=== PATIENT | male | born 1975 | race Caucasian/White ===

== ENCOUNTER 2024-09-25 15:52 | Emergency (ER) | payer BC, SELFPAY ==
--- OUTSIDE RECORDS SUMMARY | 2024-09-23 10:20 | XMS_ITS | Encounter Summary ---
Author Organization [facility] Healthcare Address [address] [place] [address] Care Team Providers Care Documentation Engineer Name Role Phone Kae Casanova NP Unavailable Yolanda Medina MD Primary Care Provider [phone] Reason for Visit * Reason Comments UTI Encounter Details Date Type Department Care Team (Late st Contact Info) Description 09/23/2024 10:20 AM EDT Office Visit [facility] Family Medicine [address] [place] [address] Yolanda Mednia MD [address] [place] [address] Arthralgia, unspecified joint (Primary Dx); Dysuria; Nonintractable headache, unspecified chronicity pattern, unspecified headache type Social History Tobacco Use Types Packs/Day Years Used Date Smoking Tobacco: Never Smokeless Tobacco: Never Alcohol Use Standard Drinks/Week Comments Yes 0 (1 standard drink = 0.6 oz pure alcohol) caffeine: 1-2 cups every other day AUDIT-C Answer Date Recorded Q1: How often do you have a drink containing alc ohol? Monthly or less 10/01/2022 Q2: How many drinks containi ng alcohol do you have on a typical day when you are drinking? 1 or 2 10/01/2022 Q3: How often do you have si x or more drinks on one occasion? Never 10/01/2022 PHQ-2 Answer Date Recorded Patient Health Questionnaire-2 Score 0 10/01/2022 Sex and Gender Information Value Date Recorded Sex Assigned at Not on file Legal Sex Male 7:25 PM EDT Gender Identity Not on file Sexual Orientation Not on file documented as of this encounter Last Filed Vital Signs Vital Sign Reading Time Taken Comments Blood Pressure 124/70 09/23/2024 10:31 AM EDT Pulse 97 09/23/2024 10:31 AM EDT Temperature - - Respiratory Rate 18 09/23/2024 10:31 AM EDT Oxygen Saturation 95% 09/23/2024 10:31 AM EDT Inhaled Oxygen Concentration - - Weight 157 kg (346 lb 6.4 oz) 09/23/2024 10:31 A M EDT Height 160 cm (5' 3 ) 09/23/2024 10:31 AM EDT Body Mass Index 61.36 09/23/2024 10:31 AM EDT documented in this encounter Progress Notes * Yolanda Medina MD - 09/23/2024 10:20 AM EDT Images from the original note were not included. Subjective Patient ID: Nolan Prince is a 49 y.o. male who presents for UTI. HPI History of Present Illness The patient presents for evaluation of diarrhea. She began experiencing frequent bowel movements after work on 09/22/2024, with a total of three bowel movements this morning and one during the night. The stools were slightly loose but not severe. She has not had any recent issues with constipation. Her typical pattern is three bowel movements in the morning, which are not always loose. On some days, she may only have one or two bowel movements.Her diet includes Gatorade, consuming one to two bottles daily, and water. She also consumes fiber-rich cereals. She underwent a colonoscopy years ago due to bleeding. She reports feeling slightly congested and has a mild ache. She has had tick bites in the past and had one on 09/22/2024. Diet: Includes Gatorade (1-2 bottles daily), water, and fiber-rich cereals. PAST SURGICAL HISTORY: Colonoscopy years ago due to bleeding. Objective There were no vitals taken for this visit. Visit Vitals BP 124/70 (BP Location: Left arm, Patient Position: Sitting, BP Cuff Size: Large adult) Pulse 97 Resp 18 Ht 5' 3 Wt 346 lb 6.4 oz SpO2 95% BMI 61.36 kg/m?? Smoking Status Never BSA 2.64 m?? Physical Exam Constitutional: Appearance: He is normal weight. HENT: Head: Normocephalic and atraumatic. Nose: Nose normal. No congestion. Mouth/Throat: Mouth: Mucous membranes are moist. Eyes: Extraocular Movements: Extraocular movements intact. Pupils: Pupils are equal, round, and reactive to light. Cardiovascular: Rate and Rhythm: Normal rate and regular rhythm. Pulmonary: Effort: Pulmonary effort is normal. No respiratory distress. Breath sounds: Normal breath sounds. No wheezing. Musculoskeletal: General: No swelling or deformity. Cervical back: Normal range of motion and neck supple. Right lower leg: No edema. Left lower leg: No edema. Skin: General: Skin is warm and dry. Findings: No rash. Neurological: General: No focal deficit present. Mental Status: He is alert and oriented to person, place, and time. Cranial Nerves: No cranial nerve deficit. Gait: Gait normal. Psychiatric: Mood and Affect: Mood normal. Behavior: Behavior normal. Physical Exam Nose: No runny nose Cardiovascular: Blood pressure is normal Assessment & Plan Dysuria Orders: POCT Urinalysis dipstick CBC and differential; Future Arthralgia, unspecified joint Orders: CBC and differential; Future Comprehensive metabolic panel; Future Lyme disease, PCR; Future Nonintractable headache, unspecified chronicity pattern, unspecified headache type Orders: CBC and differential; Future Comprehensive metabolic panel; Future Lyme disease, PCR; Future Assessment & Plan 1. Diarrhea. - Symptoms of frequent bowel movements and loose stools started after work yesterday. - Reports having 3 bowel movements this morning and 1 in the middle of the night. - Blood work will be drawn, and a urine culture will be sent for further analysis to rule out any infection. - Advised to rest, hydrate adequately, and avoid overexertion. Increase fiber intake to help regulate bowel movements. Inform us immediately if the condition worsens. 2. Fever. - Reports feeling a little achy and has a slight fever. - No runny nose or significant symptoms to explain the fever. - Advised to rest and stay hydrated. - If symptoms persist or worsen, further evaluation will be necessary. documented in this encounter Plan of Treatment Scheduled Orders Name Type Priority Associated Diagnoses Orde r Schedule Lyme disease, PCR Lab Routine Arthralgia, unspecified joint Nonintractable headache, unspecified chronicity pattern, unspecified headache type Expected: 09/23/2024 (Approximate), Expires: 09/23/2025 Urine culture (clean catch) Microbiology Routine Dysuria Arthralgia, unspecified joint Nonintractable headache, unspecified chronicity pattern, unspecified headache type Expected: 09/23/2024 (Approximate), Expires: 09/23/2025 documented as of this encounter Procedures Procedure Name Priority Date/Time Associated Diagnosis Comments LYME DISEASE, WESTERN BLOT Routine 09/23/2024 10:55 AM EDT CBC (INCLUDES DIFF/PLT) Routine 09/23/2024 10:55 AM EDT Dysuria Arthralgia, unspecified joint Nonintractable headache, unspecified chronicity pattern, unspecified headache type COMPREHENSIVE METABOLIC PANEL Routine 09/23/2024 10:55 AM EDT Arthralgia, unspecified joint Nonintractable headache, unspecified chronicity pattern, unspecified headache type POCT URINALYSIS DIPSTICK Routine 09/23/2024 10:42 AM EDT Dysuria documented in this encounter Results * Lyme disease, western blot (09/23/2024 10:55 AM EDT) [facility] LYME AB SCREEN <0.90 index [facility] Comment: Index Interpretation ----- < 0.90 Negative 0.90-1.09 Equivocal > 1.09 Positive As recommended by the Food and Drug Administration (FDA), all samples with positive or equivocal results in a Borrelia burgdorferi antibody screen will be tested using a blot method. Positive or equivocal screening test results should not be interpreted as truly positive until verified as such using a supplemental assay (e.g., B. burgdorferi blot). The screening test and/or blot for B. burgdorferi antibodies may be falsely negative in early stages of Lyme disease, including the period when erythema migrans is apparent. 09/23/2024 10:5 5 AM EDT 09/23/2024 10:55 AM EDT Narrative Resulting Agency Comment Performing Organization Information Site ID: QPT Name: [facility] Address: [address], [address] [place] [address] Director: Mickey Martinez MD Yolanda Medina MD LAB BLOOD ORDERABLES Final Resul t Performing Organization Address [facility] Co de Phone Number [facility] * Comprehensive metabolic panel (09/23/2024 10:55 AM EDT) [facility] Glucose 87 65 - 99 mg/dL [facility] Comment: Fasting reference interval BUN 14 7 - 25 mg/dL [facility] Creatinine 0.99 0.60 - 1.29 mg/dL [facility] EGFR 95 > OR = 60 mL/min/1. 73m2 [facility] BUN/CREATININE RATIO SEE NOTE: 6 - 22 (calc) [facility] Comment: Not Reported: BUN and Creatinine are within reference range. Sodium 137 135 - 146 mmol/L [facility] Potassium, Bld 3.8 3.5 - 5.3 mmol/L [facility] Chloride 100 98 - 110 mmol/L [facility] Carbon Dioxide 28 20 - 32 mmol/L [facility] Calcium 9.6 8.6 - 10.3 mg/dL [facility] PROTEIN, TOTAL 7.0 6.1 - 8.1 g/dL [facility] ALBUMIN 4.1 3.6 - 5.1 g/dL [facility] GLOBULIN 2.9 1.9 - 3.7 g/dL (calc) [facility] ALBUMIN/GLOBULIN RATIO 1.4 1.0 - 2.5 (calc) [facility] BILIRUBIN, TOTAL 1.0 0.2 - 1.2 mg/dL [facility] ALKALINE PHOSPHATASE 74 36 - 130 U/L [facility] AST 12 10 - 40 U/L [facility] ALT 14 9 - 46 U/L [facility] Blood Venous blood specimen / Unknown 09/23/2024 10:55 AM EDT 09/23/2024 10:55 AM EDT Narrative Resulting Agency Comment Performing Organization Information Site ID: QPT Name: [facility] Address: [address] [place] [address] Director: Mickey aMrtinez MD Yolanda Medina MD LAB BLOOD ORDERABLES Final Resul t Performing Organization Address City/[facility]/ZIP Co de Phone Number [facility] * (ABNORMAL) CBC and differential (09/23/2024 10:55 AM EDT) WHITE BLOOD CELL COUNT 19.0(H) 3.8 - 10.8 Thousand/ uL [facility] RED BLOOD CELL COUNT 5.00 4.20 - 5.80 Million/u L [facility] HEMOGLOBIN 15.0 13.2 - 17.1 g/dL [facility] HEMATOCRIT 46.9 38.5 - 50.0 % [facility] MCV 93.8 80.0 - 100.0 fL [facility] MCH 30.0 27.0 - 33.0 pg [facility] MCHC 32.0 32.0 - 36.0 g/dL [facility] Comment: For adults, a slight decrease in the calculated MCHC value (in the range of 30 to 32 g/dL) is most likely not clinically significant; however, it should be interpreted with caution in correlation with other red cell parameters and the patient's clinical condition. RDW 13.6 11.0 - 15.0 % [facility] PLATELET COUNT 200 140 - 400 Thousand/ uL [facility] MPV 11.2 7.5 - 12.5 fL [facility] ABSOLUTE NEUTROPHILS 16,853(H) 1,500 - 7,800 cells/uL [facility] ABSOLUTE LYMPHOCYTES 969 850 - 3,900 cells/uL [facility] ABSOLUTE MONOCYTES 1,083(H) 200 - 950 cells/uL [facility] ABSOLUTE EOSINOPHILS 38 15 - 500 cells/uL [facility] ABSOLUTE BASOPHILS 57 0 - 200 cells/uL [facility] NEUTROPHILS 88.7 % [facility] LYMPHOCYTES 5.1 % [facility] MONOCYTES 5.7 % [facility] EOSINOPHILS 0.2 % [facility] BASOPHILS 0.3 % [facility] Blood Venous blood specimen / Unknown 09/23/2024 10:55 AM EDT 09/23/2024 10:55 AM EDT Narrative Resulting Agency Comment Performing Organization Information Site ID: QPT Name: [facility] Address: [address] [place] [phone] Director: Mickey Martinez MD us Yolanda Medina MD LAB BLOOD ORDERABLES Final Resul t [facility] * POCT Urinalysis dipstick (09/23/2024 10:42 AM EDT) Color, UA Light Yellow Clarity, UA Clear Glucose, UA Negative Negative - 1999(110) ++++ mg/dL Bilirubin, UA Negative Negative - 4(70) +++ mg/dL Ketones, UA Negative Negative - 160(16) ++++ mg/dL Spec Grav, UA 1.005 1 - 1.03 Blood, UA Negative Negative - 50 Juan Manuel/mcL pH, UA 6.5 5 - 9 Protein, UA Negative Negative - 1999(20) ++++ mg/dL Urobilinogen, UA 0.2 0.2 - 12 mg/dL Leukocytes, UA Negative Negative - 500+++ Domingo/mcL Nitrite, UA Negative Negative - Positive Urine 09/23/2024 10:4 2 AM EDT Yolanda Medina MD POINT OF CARE TEST ENTER/EDIT OR DERABLES Final Result documented in this encounter Visit Diagnoses Diagnosis Arthralgia, unspecified joint- Primary Dysuria Nonintractable headache, unspecified chronicity pattern, unspecified headache type documented in this encounter Care Teams Documentation Engineer Relationship Specialty Start Date End Date Kae Casanova NP PCP - [employer] 05/25/20 Yolanda Medina MD [address] [place] [address] PCP - General Family Medicine 07/02/22 documented as of this encounter
--- OUTSIDE RECORDS SUMMARY | 2024-09-25 08:00 | XMS_ITS | Encounter Summary ---
Author Organization [facility] Healthcare Address [address] [place] [address] Care Team Providers Care Reed Maker Name Role Phone Kae Casanova NP Unavailable Yolanda Medina MD Primary Care Provider [phone] Encounter Details Date Type Department Care Team (Late st Contact Info) Description 09/25/2024 8:00 AM EDT Office Visit [facility] Family Medicine [address] [place] [address] Melinda Fuller NP [address], [place] [id number] Arthralgia, unspecified joint (Primary Dx); Dysuria; Nonintractable headache, unspecified chronicity pattern, unspecified headache type; Leukocytosis, unspecified type; Fever, unspecified fever cause Social History Tobacco Use Types Packs/Day Years [...] Sign Reading Time Taken Comments Blood Pressure 138/78 09/25/2024 8:22 AM EDT Pulse 99 09/25/2024 8:22 AM EDT Temperature 37.3 C (99.1 F) 09/25/2024 8:22 AM EDT Respiratory Rate - - Oxygen Saturation 96% 09/25/2024 8:22 AM EDT Inhaled Oxygen Concentration - - Weight - - Height - - Body Mass Index - - documented in this encounter Progress Notes * Melinda Fuller, MELODIE - 09/25/2024 8:00 AM EDT Images from the original note were not included. Nolan Prince is a 49 y.o. male presents with chief complaint of urine follow up. HPI: HPI History of Present Illness The patient presents for evaluation of dysuria, arthralgias, fevers, and headaches. He reports some improvement in his condition, although he continues to experience intermittent fevers, chills, dysuria, arthralgias, and headaches. He is uncertain about the presence of fever yesterday as it was not checked. He also mentions occasional joint pain, which has lessened in severity since his visit on with Dr. Medina. He experiences sporadic burning sensations during urinationand persistent headaches. He does not report any shortness of breath or chest pain. He reports no risk of sexually transmitted diseases. He notes that his urine was clear this morning but has since darkened. He maintains adequate hydration. SUBJECTIVE: MEDICATIONS: Current Outpatient Medications Medication Instructions albuterol HFA 90 mcg/act inhaler 2 puffs, Inhalation, Every 6 hours hydroCHLOROthiazide (HYDRODIURIL) 25 mg, Oral, Daily lisinopril 10 mg, Oral, Daily meloxicam (Mobic) 15 MG tablet Every 24 hours Misc Natural Products (Elderberry Zinc/Vit C/Immune) lozenge as directed Mouth/Throat Misc. Devices misc 1 wear nightly Multiple Vitamins-Minerals (One Daily Complete for Men) tablet as directed Orally omeprazole (PriLOSEC) [address] capsule TAKE ONE CAPSULE BY MOUTH DAILY 30 MINUTES BEFORE MORNING MEAL for 90 days I have reviewed and reconciled the history and medication list with the patient today. REVIEW OF SYMPTOMS: Review of Systems Constitutional: Positive for chills, fatigue and fever. HENT: Negative. Respiratory: Positive for cough. Cardiovascular: Negative. Gastrointestinal: Positive for abdominal pain. Genitourinary: Positive for dysuria. Musculoskeletal: Positive for arthralgias. Skin: Negative. Neurological: Negative. Psychiatric/Behavioral: Negative. OBJECTIVE: Visit Vitals BP 138/78 (BP Location: Right arm, Patient Position: Sitting) Pulse 99 Temp 99.1 ??F SpO2 96% Smoking Status Never Physical Exam Vitals and nursing note reviewed. Constitutional: Appearance: Normal appearance. He is ill-appearing. HENT: Head: Normocephalic and atraumatic. Right Ear: Tympanic membrane normal. Left Ear: Tympanic membrane normal. Nose: Nose normal. Mouth/Throat: Mouth: Mucous membranes are moist. Cardiovascular: Rate and Rhythm: Normal rate and regular rhythm. Pulses: Normal pulses. Heart sounds: Normal heart sounds. Pulmonary: Effort: Pulmonary effort is normal. No respiratory distress. Breath sounds: Normal breath sounds. No stridor. No wheezing, rhonchi or rales. Abdominal: General: Bowel sounds are normal. There is no distension. Palpations: Abdomen is soft. There is no mass. Tenderness: There is no abdominal tenderness. There is no right CVA tenderness or left CVA tenderness. Hernia: No hernia is present. Skin: General: Skin is warm and dry. Neurological: General: No focal deficit present. Mental Status: He is alert and oriented to person, place, and time. Psychiatric: Mood and Affect: Mood normal. Behavior: Behavior normal. ASSESSMENT AND PLAN: Assessment/Plan Problem List Items Addressed This Visit None Visit Diagnoses Arthralgia, unspecified joint - Primary Relevant Orders CBC and differential DEEDEE Sedimentation rate, automated C-reactive protein Rheumatoid factor XR chest 2 views Dwight-Chilel virus VCA antibody panel Blood culture Blood culture Dysuria Relevant Medications cephalexin (Keflex) 500 MG capsule Take 1 capsule (500 mg) by mouth in the morning and 1 capsule (500 mg) at noon and 1 capsule (500 mg) in the evening and 1 capsule (500 mg) before bedtime. Do all this for 7 days Other Relevant Orders Urine culture (clean catch) Urinalysis with reflex microscopic POCT Urinalysis dipstick (Completed) C. trachomatis / N. gonorrhoeae, DNA probe Nonintractable headache, unspecified chronicity pattern, unspecified headache type Leukocytosis, unspecified type Relevant Orders CBC and differential DEEDEE Sedimentation rate, automated C-reactive protein Rheumatoid factor XR chest 2 views Dwight-Chilel virus VCA antibody panel Blood culture Blood culture Fever, unspecified fever cause Relevant Orders CBC and differential DEEDEE Sedimentation rate, automated C-reactive protein Rheumatoid factor XR chest 2 views Dwight-Chilel virus VCA antibody panel Blood culture Blood culture Assessment & Plan 1. Urinary Tract Infection. - White blood cell count is elevated, indicating a possible infection. Presence of blood and leukocytes in urine suggests a urinary tract infection. - Urine sample from 09/23/2024 did not show any abnormalities. Discoloration of urine could be due to dehydration or onset of a urinary tract infection with blood in the urine. Expected urine color normalization post-treatment. - Comprehensive workup to rule out other potential causes. Repeat CBC to monitor white blood cell count. Blood cultures to rule out any bacteria growth in the blood. C-reactive protein and sed rate to assess for inflammation. Tests for DEEDEE and rheumatoid factor to rule out autoimmune conditions. Chest x-ray to exclude any pulmonary issues. Urine culture to be sent for analysis. Chlamydia and gonor chrissie urine test as well. - Keflex 500 mg, 1 capsule 4 times a day for 7 days prescribed. Advised to maintain adequate hydration. Await results of the second urine culture if the first is negative. Further investigation may be necessary if the second culture is also negative. documented in this encounter Plan of Treatment Scheduled Orders Name Type Priority Associated Diagnoses Order Schedule CBC and differential Lab Routine Arthralgia, unspecified joint Leukocytosis, unspecified type Fever, unspecified fever cause Expected: 09/25/2024 (Approximate), Expires: 09/25/2025 DEEDEE Lab Routine Arthralgia, unspecified joint Leukocytosis, unspecified type Fever, unspecified fever cause Expected: 09/25/2024 (Approximate), Expires: 09/25/2025 Sedimentation rate, automated Lab Routine Arthralgia, unspecified joint Leukocytosis, unspecified type Fever, unspecified fever cause Expected: 09/25/2024 (Approximate), Expires: 09/25/2025 C-reactive protein Lab Routine Arthralgia, unspecified joint Leukocytosis, unspecified type Fever, unspecified fever cause Expected: 09/25/2024 (Approximate), Expires: 09/25/2025 Rheumatoid factor Lab Routine Arthralgia, unspecified joint Leukocytosis, unspecified type Fever, unspecified fever cause Expected: 09/25/2024 (Approximate), Expires: 09/25/2025 XR chest 2 views Imaging Routine Arthralgia, unspecified joint Leukocytosis, unspecified type Fever, unspecified fever cause Expected: 09/25/2024, Expires: 09/25/2025 Dwight-Chilel virus VCA antibody panel Lab Routine Arthralgia, unspecified joint Leukocytosis, unspecified type Fever, unspecified fever cause Expected: 09/25/2024 (Approximate), Expires: 09/25/2025 Blood culture Microbiology Routine Arthralgia, unspecified joint Leukocytosis, unspecified type Fever, unspecified fever cause Expected: 09/25/2024 (Approximate), Expires: 09/25/2025 Blood culture Microbiology Routine Arthralgia, unspecified joint Leukocytosis, unspecified type Fever, unspecified fever cause Expected: 09/25/2024 (Approximate), Expires: 09/25/2025 Urine culture (clean catch) Microbiology Routine Dysuria Expected: 09/25/2024 (Approximate), Expires: 09/25/2025 Urinalysis with reflex microscopic Lab Routine Dysuria Expected: 09/25/2024 (Approximate), Expires: 09/25/2025 C. trachomatis / N. gonorrhoeae, DNA probe Pathology and Cytology Routine Dysuria Expected: 09/25/2024 (Approximate), Expires: 09/25/2025 documented as of this encounter Procedures Procedure Name Priority Date/Time Associated Diagnosis Comments POCT URINALYSIS DIPSTICK Routine 09/25/2024 8:55 AM EDT Dysuria documented in this encounter Results * POCT Urinalysis dipstick (09/25/2024 8:55 AM EDT) Color, UA [employer] Clarity, UA Hazy Glucose, UA Negative Negative - 2000(110) ++++ mg/dL Bilirubin, UA Negative Negative - 4(70) +++ mg/dL Ketones, UA Negative Negative - 160(16) ++++ mg/dL Spec Grav, UA 1.015 1 - 1.03 Blood, UA Positive Negative - 50 Juan Manuel/mcL pH, UA 5.0 5 - 9 Protein, UA Positive Negative - 2000(20) ++++ mg/dL Urobilinogen, UA 0.2 0.2 - 12 mg/dL Leukocytes, UA Positive Negative - 500+++ Domingo/mcL Nitrite, UA Negative Negative - Positive Urine 09/25/2024 8:55 AM EDT Melinda Fuller COUNSELING CASE MANAGER POINT OF CARE TEST ENTER/EDIT O RDERABLES Final Result documented in this encounter Visit Diagnoses Diagnosis Arthralgia, unspecified joint- Primary Dysuria Nonintractable headache, unspecified chronicity pattern, unspecified headache type Leukocytosis, unspecified type Fever, unspecified fever cause documented in this encounter Care Teams Reed Maker Relationship Specialty Start Date End Date Kae Casanova NP PCP - Sandra [employer] 05/25/20 Yolanda Medina MD [address] [place] [address] PCP - General Family Medicine 07/02/22 documented as of this encounter
--- OUTSIDE RECORDS SUMMARY | 2024-09-25 09:30 | XMS_ITS | Encounter Summary ---
Author Organization [facility] [facility] tem Address [id number] [address] [place] [address] Care Team Providers Care Cook Helper Preserves Name Role Phone Yolanda Medina MD Primary Care Provider [phone] Encounter Details Date Type Department Care Team (Latest Contact Info) Description 09/25/2024 9:30 AM EDT Hospital Encounter [facility] - Radiology [address] [place] [id number] Arthralgia, unspecified joint Social History Tobacco Use Types Packs/Day Years Used Date Smoking Tobacco: Never Smokeless Tobacco: Never Alcohol Use Standard Drinks/Week Comments Yes 0 (1 standard drink = 0.6 oz pur e alcohol) AUDIT-C Answer Date Recorded Frequency of Alcohol Consumption Monthly or less 12/24/2017 Average Number of Drinks Not on file 018 Frequency of Binge Drinking Not on file 11/26 Childcare Answer Date Recorded Childcare Unknown 08/05/2018 Employment Answer Date Recorded Employment Unknown 08/05/2018 Purpose - Life Answer Date Recorded Purpose and direction in life Unknown Sex and Gender Information Value Date Recorded Sex Assigned at Not on file Legal Sex Male 12:14 PM EDT Gender Identity Not on file Sexual Orientation Not on file documented as of this encounter Plan of Treatment Pending Results Name Type Priority Associated Diagnoses Date /Time X-ray chest 2 views Imaging Routine Arthralgia, unspecified joint 09/25/2024 9:51 AM EDT Scheduled Orders Name Type Priority Associated Diagnoses Orde r Schedule X-ray chest 2 views Imaging Routine Arthralgia, unspecified joint Once for 1 Occurrences starting 09/25/2024 until 09/25/2024 documented as of this encounter Visit Diagnoses Diagnosis Arthralgia, unspecified joint documented in this encounter Care Teams Cook Helper Preserves Relationship Specialty Start Date End Date Yolanda Medina MD [address] [place] [address] PCP - General Family Medicine 09/25/24 documented as of this encounter
--- OUTSIDE RECORDS SUMMARY | 2024-09-25 16:19 | XMS_ITS | Encounter Summary ---
Author Organization [facility] Address [address] [place] [address] Care Team Providers Care Fulfillment Representative Name Role Phone Kae Casanova NP Unavailable Yolanda Medina MD Primary Care Provider [phone] Encounter Details Date Type Department Care Team (Late st Contact Info) Description 09/23/2024 Bamboo flowsheet [facility] Family Medicine [address] [place] [address] Yolanda Medina MD [address] [place], [place] [id number] Social History Tobacco Use Types Packs/Day Years [...] as of this encounter Plan of Treatment Not on file documented as of this encounter Visit Diagnoses Not on filedocumented in this encounter Care Teams Fulfillment Representative Relationship Specialty Start Date End Date Kae Casanova NP PCP - Sandra De La Cruz 05/25/20 Yolanda Medina MD [address] [place] [address] PCP - General Family Medicine 07/02/22 documented as of this encounter
--- OUTSIDE RECORDS SUMMARY | 2024-09-25 16:19 | XMS_ITS | Clinical Summary ---
Author Organization [employer] Address [id number] [address] [place] [address] Care Team Providers Care Paginator Name Role Phone Yolanda Medina MD Primary Care Provider [phone] Allergies No known active allergies Medications aspirin 81 mg chewable tablet Chew 162 mg and swallow daily. Active raNITIdine (ZANTAC) 150 MG capsule Take 150 mg by mouth daily. Active omeprazole (PriLOSEC) 20 mg capsuleIndicat ions:gastroeso phageal reflux disease Take 40 mg by mouth daily Indications: gastroesophageal reflux disease. Active Active Problems Problem Noted Date Diagnosed Date Renal cyst 12/02/2018 Overview (12/02/2018): ====12/02/18=====Concern for possible mass on CT w/out contrast 11/19. Follow-up contrasted CT 11/23/18 showed nodularity and peripelvic cysts with no mass. I will need to personally review the films. If no concerning xbrdurw-cinidn-ib as scheduled in Mar Adrenal adenoma, right 01/19/2018 Overview (04/01/2018): ==== 04/01/2018 ==== functional studies negative Hematuria, gross 12/24/2017 Overview (04/19/2019): ==== 04/19/2019 ==== no interval gross hematuria. Urine for cytology today. Return to clinic in 6 months ==== 12/24/2017 ==== history of gross hematuria painless in nature at least 2 times the last year. Had CT scan noncontrast demonstrating punctate calculus otherwise essentially negative. Nonsmoker. GFR is normal. Liver function studies and platelets were fine as well. No easy bruising or bleeding. He is on a daily small dose of aspirin. Plan: Is completion hematuria evaluation CT urogram in order to look the parenchyma as well as the collecting system. Potential retrograde pyelogram. These are contrasted studies. Diagnostic endoscopy cystourethroscopy. Urine for cytology. ==== 04/01/2018 ==== initial hematuria evaluation negative. Return to clinic 6 months for cytology. ==== 10/14/2018 ==== no interval gross hematuria dysuria. Urine for cytology today. Return to clinic 6 months ====12/02/18====I will get urine results from [facility]. In the meantime, I asked him to contact the office if dysuria or suspects any abnormality in his urine. Standing order placed in [facility] Assessment & Plan (10/14/2018 1:55 PM EDT): Patient was instructed regarding need for serial hematuria follow up. The patient understands to contact our office should they have gross hematuria or persistent dysuria. Assessment & Plan (04/01/2018 3:50 PM EST): Patient was instructed regarding need for serial hematuria follow up. The patient understands to contact our office should they have gross hematuria or persistent dysuria. Assessment & Plan (12/24/2017 3:05 PM EDT): We reviewed today than any abnormality of the urinary tract including cancer, medical renal disease, infection, calculi, bleeding the diathesis, idiopathic, benign familial, BPH, or congenital anomaly could account for hematuria, and hence the importance of evaluation. The patient understands that all studies ordered must be completed in order to fully evaluate the urinary system. The patient and Mikhail acknowledges this and agree. Encounters Date Type Department Care Team Description 09/25/2024 9:30 AM EDT Hospital Encounter [facility] - Radiology [address] [place] [address] Arthralgia, unspecified joint 09/25/2024 Travel from Last 3 Months Family History Relation Name Status Comments Father Alive Mother Alive Social History Tobacco Use Types Packs/Day Years [...] on file Sexual Orientation Not on file Last Filed Vital Signs Vital Sign Reading Time Taken Comments Blood Pressure 120/70 04/19/2019 3:24 PM EST Pulse 70 04/19/2019 3:24 PM EST Temperature - - Respiratory Rate 18 04/19/2019 3:24 PM EST Oxygen Saturation - - Inhaled Oxygen Concentration - - Weight 146.1 kg (322 lb) 04/19/2019 3:24 PM EST Height 160 cm (5' 3 ) 04/19/2019 3:24 PM EST Body Mass Index 57.04 04/19/2019 3:24 PM EST Plan of Treatment Health Maintenance Due Date Last Done Comments Depression Screening 1989 Tobacco Screening 1989 Adult BMI Screening 06/09/1995 Influenza Vaccine 10/25/2024 11/13/2023, , 11/28/2021, Additional history exists DTaP,Tdap and Td Vaccines (3 - Td or Tdap) 11/15/2031 11/14/2021, 11/06/2011 COVID-19 Vaccine Completed 11/13/2023, , 08/01/2020, Additional history exists Medical Devices Not on file [place] [address] [place] [address] Care Teams Paginator Relationship Specialty Start Date End Date Yolanda Medina MD [address] [place] [id number] PCP - General Family Medicine 09/25/24
--- OUTSIDE RECORDS SUMMARY | 2024-09-25 16:19 | XMS_ITS | Encounter Summary ---
Author Organization [facility] Address [address] [place] [address] Care Team Providers Care Cigar Head Perforator Name Role Phone Kae Casanova CLINICAL SAFETY SPECIALIST Unavailable Yolanda Medina MD Primary Care Provider [phone] Encounter Details Date Type Department Care Team (Latest Contact Info) Description 09/25/2024 Travel Social History Tobacco Use Types Packs/Day Years [...] on filedocumented in this encounter Care Teams Cigar Head Perforator Relationship Specialty Start Date End Date Kae Casanova NP PCP - [place] [employer] 05/25/20 Yolanda Medina MD [address] [facility] [address] PCP - General Family Medicine 07/02/22 documented as of this encounter
--- OUTSIDE RECORDS SUMMARY | 2024-09-25 16:19 | XMS_ITS | Encounter Summary ---
Author Organization [employer] Address [id number] [address] [place] [address] Care Team Providers Care Farm Operations Technical Director Name Role Phone Yolanda Medina MD Primary Care Provider [phone] Encounter Details Date Type Department Care Team [...] on filedocumented in this encounter Care Teams Farm Operations Technical Director Relationship Specialty Start Date End Date Yolanda Medina MD [address] [place] [address] PCP - General Family Medicine 09/25/24 documented as of this encounter
--- OUTSIDE RECORDS SUMMARY | 2024-09-25 16:19 | XMS_ITS | Encounter Summary ---
Author Organization [facility] Address [address] [place] [address] Care Team Providers Care Combat Control Name Role Phone Kae Casanova MECHANICAL PROCESS ENGINEER Unavailable Yolanda Medina MD Primary Care Provider [phone] Encounter Details Date Type Department Care Team (Latest Contact Info) Description 09/23/2024 Travel Social History Tobacco Use Types Packs/Day [...] on filedocumented in this encounter Care Teams Combat Control Relationship Specialty Start Date End Date Kae Casanova NP PCP - [place] [employer] 05/25/20 Yolanda Medina MD [address] [facility] [place] [address] PCP - General Family Medicine 07/02/22 documented as of this encounter
--- OUTSIDE RECORDS SUMMARY | 2024-09-25 16:19 | XMS_ITS | Encounter Summary ---
Author Organization [facility] Address [address] [place] [address] Care Team Providers Care Handle Attacher Name Role Phone Kae Casanova NP Unavailable Yolanda Medina MD Primary Care Provider Encounter Details Date Type Department Care Team (Late st Contact Info) Description 09/25/2024 Bamboo flowsheet [facility] Family Medicine [address] [place] [address] Melinda Fuller NP [address] [place], [place] [phone] Social History Tobacco Use Types Packs/Day Years [...] on filedocumented in this encounter Care Teams Handle Attacher Relationship Specialty Start Date End Date Kae Casanova NP PCP - Sandra De La Cruz 05/25/20 Yolanda Medina MD [address] [place] [address] PCP - General Family Medicine 07/02/22 documented as of this encounter
--- OUTSIDE RECORDS SUMMARY | 2024-09-25 16:19 | XMS_ITS | Clinical Summary ---
Author Organization [facility] Address [address] [place] [address] Care Team Providers Care Piano Regulator Name Role Phone Kae Casanova NP Unavailable Yolanda Medina MD Primary Care Provider [phone] Allergies No known active allergies Medications Misc. Devices misc 1 wear nightly Active meloxicam (Mobic) 15 MG tablet 1 (one) time each day at the same time. 1 Active [facility] Natural Products (Elderberry Zinc/Vit C/Immune) lozenge as directed Mouth/Throat Active Multiple Vitamins-Minerals (One Daily Complete for Men) tablet as directed Orally Active omeprazole (PriLOSEC) [address] capsule TAKE ONE CAPSULE BY MOUTH DAILY 30 MINUTES BEFORE MORNING MEAL for 90 days Active hydroCHLOROthiazi de (HYDRODiuril) 25 MG tabletIndications :Essential hypertension Take 1 tablet (25 mg) by mouth Daily 90 tablet 1 4 Active albuterol HFA 90 mcg/act inhalerIndication s:Moderate persistent asthma without complication (HCC) Inhale 2 puffs every 6 (six) hours 18 g 1 4 Active lisinopril 10 MG tabletIndications :Essential hypertension Take 1 tablet (10 mg) by mouth Daily 30 tablet 11 5 Active cephalexin (Keflex) 500 MG capsuleIndication s:Dysuria Take 1 capsule (500 mg) by mouth in the morning and 1 capsule (500 mg) at noon and 1 capsule (500 mg) in the evening and 1 capsule (500 mg) before bedtime. Do all this for 7 days. 28 capsule 5 10/03/19 25 Active Active Problems Problem Noted Date Diagnosed Date Acute pain of left knee 04/03/2023 Carpal tunnel syndrome of left wrist 07/05/2022 Chronic fatigue 07/05/2022 Chronic frontal sinusitis 07/05/2022 Essential hypertension 07/05/2022 Gastro-esophageal reflux disease without esophag itis 07/05/2022 History of COVID-19 07/05/2022 Morbid obesity 07/05/2022 Obstructive sleep apnea syndrome 07/05/2022 Other chronic pain 07/05/2022 Asthma 07/05/2022 Reactive airway disease 07/05/2022 Moderate persistent asthma without complication 10/03/2020 Obesity with body mass index 30 or greater 04/27 Renal cyst 12/02/2018 Overview (10/01/2022): ====12/02/18=====Concern for possible mass on CT w/out contrast 11/19. Follow-up contrasted CT 11/23/18 showed nodularity and peripelvic cysts with no mass. I will need to personally review the films. If no concerning canckto-injrdx-fz as scheduled in Mar Adrenal adenoma, right 01/19/2018 Overview (10/01/2022): ==== 04/01/2018 ==== functional studies negative Encounters Date Type Department Care Team Description 09/25/2024 8:00 AM EDT Office Visit [facility] [address] [place] [address] Melinda Fuller NP Arthralgia, unspecified joint (Primary Dx); Dysuria; Nonintractable headache, unspecified chronicity pattern, unspecified headache type; Leukocytosis, unspecified type; Fever, unspecified fever cause 09/25/2024 Bamboo flowsheet [facility] [address] [facility] [place] [address] Melinda Fuller NP 09/25/2024 Travel 09/24/2024 Telephone [facility] [address] [facility] [place] [phone] Yolanda Medina MD 09/23/2024 10:20 AM EDT Office Visit [facility] [address] [facility] [place] [phone] Yolanda Medina MD Arthralgia, unspecified joint (Primary Dx); Dysuria; Nonintractable headache, unspecified chronicity pattern, unspecified headache type 09/23/2024 Bamboo flowsheet [facility] [address] [facility] [place] [phone] Yolanda Medina MD 09/23/2024 Travel from Last 3 Months Immunizations Immunization Administration Dates Next Due Influenza, injectable, quadr ivalent, preservative free 11/22/2022,11/28/2021,11/30/2020,2019,11/30/2018,11/27/2017 Influenza, seasonal, injecta ble, preservative free 11/13/2023 SARS-COV-2 (COVID-19) vaccin e, mRNA, spike protein, LNP, PF, blanca-sucrose, 30 mcg/0.3 mL 11/13/2023 Td (adult), 5 Lf tetanus tox oid, preservative free, adsorbed 11/14/2021 Tdap 11/06/2011 Family History Medical History Relation Name Comments Coronary artery disease Father Heart disease Father Relation Name Status Comments Father Alive Mother Alive Social History Tobacco Use Types Packs/Day Years Used Date Smoking Tobacco: Never Smokeless Tobacco: Never Tobacco Cessation:Counseling Given: Not Answered Alcohol Use Standard Drinks/Week Comments Yes 0 [...] F) 09/25/2024 8:22 AM EDT Respiratory Rate 18 09/23/2024 10:31 AM EDT Oxygen Saturation 96% 09/25/2024 8:22 AM EDT Inhaled Oxygen Concentration - - Weight 157 kg (346 lb 6.4 oz) 09/23/2024 10:31 A M EDT Height 160 cm (5' 3 ) 09/23/2024 10:31 AM EDT Body Mass Index 61.36 09/23/2024 10:31 AM EDT Plan of Treatment Health Maintenance Due Date Last Done Comments CT Colonography 1977 Colonoscopy 1977 Colorectal Cancer Screening 1977 FIT-DNA 1977 FIT 1977 FOBT 1977 Sigmoidoscopy 1977 Influenza Vaccine (#1) 2024 4, 11/22/2022, 11/28/2021, Additional history exists Procedures Procedure Name Priority Date/Time Associated Diagnosis Comments POCT URINALYSIS DIPSTICK Routine 09/25/2024 8:55 AM EDT Dysuria LYME DISEASE, WESTERN BLOT Routine 09/23/2024 10:55 AM EDT COMPREHENSIVE METABOLIC PANEL Routine 09/23/2024 10:55 AM EDT Arthralgia, unspecified joint Nonintractable headache, unspecified chronicity pattern, unspecified headache type CBC (INCLUDES DIFF/PLT) Routine 09/23/2024 10:55 AM EDT Dysuria Arthralgia, unspecified joint Nonintractable headache, unspecified chronicity pattern, unspecified headache type POCT URINALYSIS DIPSTICK Routine 09/23/2024 10:42 AM EDT Dysuria from Last 3 Months Results * POCT Urinalysis dipstick (09/25/2024 8:55 AM EDT) Only the most recent of2 resultswithin the time period is included. Color, UA Glades Clarity, UA Hazy Glucose, UA Negative Negative [...] Urine 09/25/2024 8:55 AM EDT Melinda Fuller MEDIA RELATIONS COORDINATOR POINT OF CARE TEST ENTER/EDIT O RDERABLES Final Result * Lyme disease, western blot (09/23/2024 10:55 AM EDT) LYME AB SCREEN <0.90 index [facility] Comment: [...] Performing Organization Information Site ID: QPT Name: [facility] Address: [address] , [address] [place] [address] Director: Mickey Martinez MD us Yolanda Medina MD LAB BLOOD ORDERABLES Final Resul t [facility] * (ABNORMAL) CBC and differential (09/23/2024 [...] Performing Organization Information Site ID: QPT Name: [facility] Address: [address], [address] [place] [address] Director: Mickey Martinez MD Yolanda Medina MD LAB BLOOD ORDERABLES Final Resul t [facility] * Comprehensive metabolic panel (09/23/2024 10:55 AM EDT) Pathologist [facility] Glucose 87 65 - 99 mg/dL [facility] [...] Performing Organization Information Site ID: QPT Name: [facility] Address: [address] [place] [address], [address] [place] [id number] Director: Mickey Martinez MD Yolanda Medina MD LAB BLOOD ORDERABLES Final Resul t [facility] from Last 3 Months Insurance BCBS Care Teams Piano Regulator Relationship Specialty Start Date End Date Kae Casanova NP PCP - [place] [employer] 05/25/20 Yolanda Medina MD [address] [place] [address] PCP - General Family Medicine 07/02/22
--- OUTSIDE RECORDS SUMMARY | 2024-09-25 16:19 | XMS_ITS | Encounter Summary ---
Author Organization [facility] Address [address] [place] [address] Care Team Providers Care Calculation Reviewer Name Role Phone Kae Casanova METAL ROOFING MECHANIC Unavailable Yolanda Medina MD Primary Care Provider [phone] Reason for Visit * Reason Comments Med Refill Encounter Details Date Type Department Care Team (Late st Contact Info) Description 12/01/2023 Refill [facility] Family Medicine [address] [place] [address] Kae Casanova METAL ROOFING MECHANIC Essential hypertension Social History Tobacco Use Types Packs/Day Years [...] on file documented as of this encounter Miscellaneous Notes * Telephone Encounter - Isabelle Kasper MA - 12/01/2023 12:48 PM EDT Approving, but needs appt for additional refills. documented in this encounter Plan of Treatment Not on file documented as of this encounter Visit Diagnoses Diagnosis Essential hypertension Unspecified essential hypertension documented in this encounter Care Teams Calculation Reviewer Relationship Specialty Start Date End Date Kae Casanova [facility] Yolanda Medina MD [address] [place] [address] PCP - General Family Medicine 07/02/22 documented as of this encounter
--- OUTSIDE RECORDS SUMMARY | 2024-09-25 16:19 | XMS_ITS | Encounter Summary ---
Author Organization [facility] Address [address] [place] [address] Care Team Providers Care Graphics Intern Name Role Phone Kae Casanova NP Unavailable Yolanda Medina MD Primary Care Provider [phone] Encounter Details Date Type Department Care Team (Late st Contact Info) Description 10/24/2022 Abstract [facility] Family Medicine [address] [place] [address] Kae Casanova NP Social History Tobacco Use Types Packs/Day Years Used Date Smoking Tobacco: Never Smokeless Tobacco: Never Alcohol Use Standard Drinks/Week Comments Yes 0 (1 standard drink = 0.6 oz pur e alcohol) caffeine: 1-2 cups per day AUDIT-C Answer Date Recorded Q1: How [...] on filedocumented in this encounter Care Teams Graphics Intern Relationship Specialty Start Date End Date Kae Casanova NP PCP - Sandra [employer] 05/25/20 Yolanda Medina MD [address] [place] [address] PCP - General Family Medicine 07/02/22 documented as of this encounter
--- OUTSIDE RECORDS SUMMARY | 2024-09-25 16:19 | XMS_ITS | Clinical Summary ---
Author Organization [facility] Address [address] [place] [address] Care Team Providers Care Equipment Service Lead Name Role Phone Unavailable Primary Care Provider Unavailabl e Medications hydroCHLOROthiazi de (HYDRODiuril) 12.5 mg tabletIndications :Benign hypertensive heart disease without congestive heart failure Take 1 tablet (12.5 mg) by mouth in the morning. 90 tablet 3 04/24/2022 Active Social History Tobacco Use Types Packs/Day Years Used Date Smoking Tobacco: Never Assessed Sex and Gender Information Value Date Recorded Sex Assigned at Not on file Legal Sex Male 9:29 PM EDT Gender Identity Not on file Sexual Orientation Not on file Last Filed Vital Signs Vital Sign Reading Time Taken Comments Blood Pressure 124/75 09/22/2019 9:03 AM EDT Pulse 83 05/07/2019 3:42 PM EDT Temperature - - Respiratory Rate - - Oxygen Saturation 98% 05/07/2019 3:43 PM EDT Inhaled Oxygen Concentration - - Weight 145 kg (319 lb) 09/22/2019 9:03 AM EDT Height 160 cm (5' 3 ) 09/22/2019 9:03 AM EDT Body Mass Index 56.51 09/22/2019 9:03 AM EDT Plan of Treatment Not on file
--- OUTSIDE RECORDS SUMMARY | 2024-09-25 16:19 | XMS_ITS | Encounter Summary ---
Author Organization [facility] Address [address] [place] [address] Care Team Providers Care Coin Box Collector Name Role Phone Kae Casanova NP Unavailable Yolanda Medina MD Primary Care Provider [phone] Encounter Details Date Type Department Care Team (Late st Contact Info) Description 09/24/2024 Telephone [facility] [address] [place] [address] Yolanda Medina MD [address] [place], [place] [phone] Social History Tobacco Use Types Packs/Day Years [...] encounter Miscellaneous Notes * Telephone Encounter - Wayne Santos - 09/24/2024 3:19 PM EDT Jayson- Nolan called asking for lab results - I did tell him that urine culture isnt back yet - documented in this encounter Plan of Treatment Not on file documented as of this encounter Visit Diagnoses Not on filedocumented in this encounter Care Teams Coin Box Collector Relationship Specialty Start Date End Date Kae Casanova NP PCP - Sandra [facility] 05/25/20 Yolanda Medina MD [address] [place] [address] PCP - General Family Medicine 07/02/22 documented as of this encounter
--- OUTSIDE RECORDS SUMMARY | 2024-09-25 16:19 | XMS_ITS | Clinical Summary ---
Author Organization [facility] Address [address] [place] [address] Care Team Providers Care Front Office Java Developer Name Role Phone Yolanda Medina MD Primary Care Provider [phone] Allergies No known active allergies Medications aspirin, enteric coated (ASPIRIN, ENTERIC COATED) 81 mg EC tablet Take 81 mg by mouth once daily. 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 on file Not on file Not on file Last Filed Vital Signs Vital Sign Reading Time Taken Comments Blood Pressure 131/81 06/14/2014 10:27 AM EDT large cuff Pulse 79 06/14/2014 10:27 AM EDT Temperature 36.9 C (98.4 F) 06/14/2014 10:27 AM EDT Respiratory Rate 14 06/14/2014 10:2 7 AM EDT Oxygen Saturation 98% 06/14/2014 10: 27 AM EDT Inhaled Oxygen Concentration - - Weight 152.2 kg (335 lb 9.6 oz) 015 10:27 AM EDT Height 160 cm (5' 3 ) 06/14/2014 10:27 AM EDT Body Mass Index 59.45 06/14/2014 10:27 AM EDT Plan of Treatment Health Maintenance Due Date Last Done Comments Anxiety Screening 06/09/1995 Depression Screening 06/09/1995 HIV Screening 06/09/1995 Hepatitis C Screening 06/09/1995 DTaP,Tdap,Td Vaccine (1 - Tdap) 1996 Hepatitis B Vaccine (1 of 3 - 19+ 3-dose series) 06/[address] Colonography 2022 Cologuard (FIT-DNA) 2022 Colonoscopy 2022 Colorectal Cancer Screening 2022 Diabetes Screening 2022 Fecal Occult Blood 2022 Sigmoidoscopy 2022 Influenza Vaccine (#1) 2024 Insurance BLUE CARD PPO OOS Care Teams Front Office Java Developer Relationship Specialty Start Date End Date Yolanda Medina MD [address] [place] [address] PCP - General Family Medicine 06/14/14
[2024-09-25 16:38] VITALS: BP 145/95; PULSE 90; TEMP 36.9; O2SAT 98; BMI 59.7
[2024-09-25 17:22] LABS: Glucose Urine UA NEGATIVE (NEGATIVE)
[2024-09-25 17:30] LABS: Cast Seen? NONE SEEN #/LPF (NONE SEEN); Crystals Seen? None Seen #/HPF (None Seen); Urine Culture Indicated YES-FRMC
--- NOTE | 2024-09-25 17:40 | ED.GENADUL1 ---
HPI HPI - General Adult General Chief complaint: Urogenital-Male Stated complaint: DIFFICULTY URINATING Time Seen by Provider: 09/25/24 16:32 Source: patient Mode of arrival: walk-in Limitations: no limitations History of Present Illness HPI narrative: 49-year-old male presents because he feels like he is having trouble urinating. He states he has been urinating frequently and when he needs to urinate he has to push harder than usual. This started 3 days ago and got worse in the last day. He had some outpatient testing was diagnosed with a UTI and was placed on Keflex which she has been taking. He had some blood work earlier today but that facility is closed and the results are unavailable at this time. No fever or gross hematuria or flank pain. Related Data Home Medications ?Medication ?Instructions ?Recorded ?Confirmed cephalexin 500 mg capsule 500 mg PO Q6H 09/25/24 09/25/24 hydrochlorothiazide 25 mg tablet 25 mg PO QDAY 09/25/24 09/25/24 lisinopril 10 mg tablet 10 mg PO QDAY 09/25/24 09/25/24 Allergies Allergy/AdvReac Type Severity Reaction Status Date / Time No Known Drug Allergies Allergy Verified 09/25/24 16:48 Review of Systems ROS Narrative A ten point review of systems is negative except as noted above. PFSH PFSH Social History Little interest or pleasure in doing things: not at all Feeling down, depressed, or hopeless: not at all Exam Narrative Exam Narrative: Nurses note and vital signs reviewed and patient is not hypoxic. General: The patient appears well and in no apparent distress. Patient is resting comfortably on cart. Skin: Warm, dry, no pallor noted. There is no rash noted. Head: Normocephalic, atraumatic Eye: Normal conjunctiva, no drainage Ears, Nose, Mouth, and Throat: oral mucosa is moist. Nares patent. Cardiovascular: Regular Rate and Rhythm Respiratory: Patient is in no distress, no accessory muscle use, lungs are clear to auscultation, no wheezing, rales or rhonchi Back: non-tender GI: Obese soft and nontender Musculoskeletal: The patient has no evidence of calf tenderness, no pitting edema, symmetrical pulses noted bilaterally Neurological: A&O, normal speech Psychiatric: Cooperative Constitutional Vital Signs, click to edit/add: Last Vital Signs Temp 98.5 F 09/25/24 16:38 Pulse 90 09/25/24 16:38 Resp 16 09/25/24 16:38 BP 145/95 H 09/25/24 16:38 Pulse Ox 98 09/25/24 16:38 O2 Del Method Room Air 09/25/24 16:38 Course Vital Signs Vital signs: Vital Signs Temperature 98.5 F 09/25/24 16:38 Pulse Rate 90 09/25/24 16:38 Respiratory Rate 16 09/25/24 16:38 Blood Pressure 145/95 H 09/25/24 16:38 Pulse Oximetry 98 09/25/24 16:38 Oxygen Delivery Method Room Air 09/25/24 16:38 Temperature 98.5 F 09/25/24 16:38 Pulse Rate 90 09/25/24 16:38 Respiratory Rate 16 09/25/24 16:38 Blood Pressure 145/95 H 09/25/24 16:38 Pulse Oximetry 98 09/25/24 16:38 Oxygen Delivery Method Room Air 09/25/24 16:38 Medical Decision Making MDM Narrative Medical decision making narrative: UTI is identified. WBC 17,[address] is pending. Patient is signed out to Dr. Bishop at change of shift. Lab Data Lab results reviewed: Yes I reviewed the patient's lab results Labs: Lab Results 09/25/24 09/25/24 Range/Units 17:10 17:32 WBC 17.4 H (4.0-11.0) 10^3/uL RBC 5.02 (4.70-6.10) 10^6/uL Hgb 15.3 (14.0-18.0) g/dL Hct 45.5 (42.0-54.0) % MCV 90.6 (80.0-94.0) fL MCH 30.5 (25.9-34.0) pg MCHC 33.6 (29.9-35.2) g/dL RDW 14.0 (11.0-15.0) % Plt Count 168 (150-450) 10^3/uL MPV 10.8 (9.5-13.5) fL Neut % (Auto) 83.7 H (43.0-75.0) % Lymph % (Auto) 6.7 L (20.5-60.0) % [place] % (Auto) 8.1 (1.7-12.0) % Eos % (Auto) 0.5 L (0.9-7.0) % Baso % (Auto) 0.3 (0.2-2.0) % Neut # (Auto) 14.5 H (1.4-6.5) 10^3/uL Lymph # (Auto) 1.2 (1.2-3.8) 10^3/uL [place] # (Auto) 1.4 H (0.3-0.8) 10^3/uL Eos # (Auto) 0.1 (0.0-0.7) 10^3/uL Baso # (Auto) 0.1 (0.0-0.1) 10^3/uL Abs Immat Gran (auto) 0.13 H (0.00-0.03) 10^3/uL Imm/Tot Granulo (auto) 0.7 H (0.0-0.5) % Sodium 134 L (136-145) mmol/L Potassium 4.7 (3.5-5.1) mmol/L Chloride 101 (98-107) mmol/L Carbon Dioxide 27.7 (21.0-32.0) mmol/L Anion Gap 10.0 BUN 12.0 (7.0-18.0) mg/dL Creatinine 1.06 (0.70-1.30) mg/dL Est GFR ( Amer) >60 (>=60 mL/min/1.73m^2) Est GFR (Non-Af Amer) >60 (>=60 mL/min/1.73m^2) BUN/Creatinine Ratio 11.3 Glucose 96 (74-106) mg/dL Calcium 9.6 (8.5-10.1) mg/dL Urine Color Lt. yellow (YELLOW) Urine Clarity Clear (CLEAR) Urine pH 6.5 (5.0-9.0) Ur Specific [place] <=1.005 A (1.005-1.025) Urine Protein Negative (NEG/TRACE) mg/dL Urine Glucose (UA) Negative (NEGATIVE) mg/dL Urine Ketones Negative (NEGATIVE) mg/dL Urine Occult Blood Trace-i (NEGATIVE) Urine Nitrite Negative (NEGATIVE) Urine Bilirubin Negative (NEGATIVE) Urine Urobilinogen 0.2 (0.2-1.0) EU/dL Ur Leukocyte Esterase Large A (NEGATIVE) Urine RBC 0-2 (0-2) #/HPF Urine WBC 20-50 A (NONE SEEN) #/HPF Ur Squamous Epith Cells Rare (NONE/RARE) #/LPF Urine Crystals None seen (None Seen) #/HPF Urine Bacteria Small A (NONE SEEN) #/HPF Urine Casts None seen (NONE SEEN) #/LPF Urine Mucus None seen (NONE SEEN) Ur Culture Indicated? Yes-[facility] [place] Discharge Plan Discharge Patient Disposition: Still a Patient
[2024-09-25 17:41] LABS: Hematocrit 45.5 % (42.0-54.0); Hemoglobin 15.3 g/dL (14.0-18.0); Immature Granulocytes Abs Auto 0.13 10^3/uL (0.00-0.03); Immature Granulocytes Pct Auto 0.7 % (0.0-0.5); Lymphocytes Absolute Auto 1.2 10^3/uL (1.2-3.8); Mean Corpuscular HGB Conc 33.6 g/dL (29.9-35.2); Mean Corpuscular Hemoglobin 30.5 pg (25.9-34.0); Mean Corpuscular Volume 90.6 fL (80.0-94.0); Platelet Count 168 10^3/uL (150-450); Red Blood Count 5.02 10^6/uL (4.70-6.10); White Blood Count 17.4 10^3/uL (4.0-11.0)
[2024-09-25 18:02] LABS: Anion Gap 10.0; Blood Urea Nitrogen 12.0 mg/dL (7.0-18.0); Calcium 9.6 mg/dL (8.5-10.1); Carbon Dioxide 27.7 mmol/L (21.0-32.0); Chloride 101 mmol/L (98-107); Estimated GFR (African America >60 (>=60 mL/min/1.73m^2); Estimated GFR (Non-African Ame >60 (>=60 mL/min/1.73m^2); Glucose 96 mg/dL (74-106); Sodium 134 mmol/L (136-145)
[2024-09-25 18:03] LABS: Potassium 4.7 mmol/L (3.5-5.1)
--- NOTE | 2024-09-25 18:06 | CT_ITS ---
[address] [address] Patient Name: LYNDON HIGUERA MRN: [id number] date: 1975 Sex: M Assigned Patient Location: ER Current Patient Location: [facility] Accession/Order Number: [id number] Exam Date: 09/25/2024 19:16 Report Date: 09/25/2024 19:25 At the request of: AYESHA WELLS MD Procedure: CT abdomen pelvis w con CT abdomen pelvis w con 09/25/2024 6:34 PM SIGNS AND SYMPTOMS: Difficulty urinating, urinary frequency, fever, chills TECHNIQUE: Multidetector ct axial images of the abdomen and pelvis were obtained with IV contrast. Multiplanar reformats were performed and reviewed to further define anatomy and possible pathology. CT was performed with one or more of the following dose reduction techniques: Automated exposure control, adjustment of the mA and/or kV according to patient size, or use of iterative reconstruction technique. COMPARISON: None. FINDINGS: Lower Chest: Within normal limits. ABDOMEN: Liver: Within normal limits. Bile Ducts: Normal caliber. Gallbladder: No calcified gallstones. Normal caliber wall. Pancreas: Within normal limits. Spleen: Within normal limits. Adrenals: There is a 3.2 cm right adrenal nodule. Kidneys: Parapelvic cysts are noted in the kidneys bilaterally. Pelvis: Reproductive Organs: No pelvic masses. Ureters: Within normal limits. Bladder: There is fat stranding adjacent to the bladder suggesting cystitis. Bowel: There are uncomplicated colonic diverticula. There is a normal appendix in the right lower quadrant. Mesenteric Lymph Nodes: No enlarged mesenteric lymph nodes. Peritoneum: No ascites or free air, no fluid collection. Vessels: within normal limits Retroperitoneum: Within normal limits. Abdominal Wall: Within normal limits. Bones: Degenerative changes are noted in the thoracolumbar spine CT/CT abdomen pelvis w con IMPRESSION: There is edema adjacent to the bladder suggesting cystitis. No bowel obstruction or obstructive uropathy. Additional chronic findings are noted above. Impression dictated by: Yuniel Kay M.D. 09/25/2024 7:25 PM Dictation Location: [place] [address] Electronically authenticated by: [id number] Y Date: 09/25/2024 19:25
[2024-09-25 19:06] VITALS: BP 111/88; PULSE 92; O2SAT 97
== END 2024-09-25 20:34 | disposition home or self-care (01) ==
PROVIDERS: Emergency Medicine; Emergency Provider Emergency Medicine; PCP Family Medicine
DX: N39.0 Urinary tract infection, site not specified (principal)
CPT/HCPCS: 36415; 51798; 74177; 80048; 81001; 85025; 87086; 96365; 99285; J0696; Q9967